=== PATIENT | male | born 2000 | race Caucasian/White ===

== ENCOUNTER 2023-01-23 03:47 | Emergency (ER) | payer BC ==
[~2023-01-23] VITALS: Ht 185.4 cm; Wt 108.9 kg
--- NOTE | 2023-01-23 04:35 | NUR ---
Patient Aox4, ambulatory. Patient's vital signs are stable. No signs of distress
--- NOTE | 2023-01-23 04:37 | NUR ---
Patient does not wish to proceed with medical care recommended by Dr. Modi. Patient given information related to possible complications, up to and including , which could occur as a result of leaving the hospital at this time. Patient verbalizes understanding of risks involved due to leaving against medical advice. Patient has signed AMA form.
[2023-01-23] MEDS ORDERED: NALO4SPR BNOSTRILS (04:41)
--- NOTE | 2023-01-23 04:41 | NUR ---
Patient brought in by [employer] unit #[id number] .
[2023-01-23 04:51] VITALS: BP 122/79
== END 2023-01-23 04:52 | disposition left against medical advice (07) ==
LOC: ER 03:53
DX: T40.411A Poisoning by fentanyl or fentanyl analogs, accidental (unintentional), initial encounter (principal); R51.9 Headache, unspecified; Y92.099 Unspecified place in other non-institutional residence as the place of occurrence of the external cause; F17.210 Nicotine dependence, cigarettes, uncomplicated
CPT/HCPCS: A4663